=== PATIENT | male | born 1985 | race Caucasian/White ===

== ENCOUNTER 2024-09-05 15:51 | Inpatient (IN) | payer OTHER ==
[~2024-09-05] VITALS: Ht 182.9 cm; Wt 105.1 kg
[~2024-09-05 15:51] MED LIST: INSUASPI SC; INSULANPEN SC; LISI20 PO; LISI5 PO; METF500 PO
[2024-09-05 16:48] LABS: BASOPHILS ABSOLUTE AUTO 0.04 K/mm3 (0.00-0.23); BASOPHILS PERCENT AUTO 0 % (0-2); EOSINOPHILS ABSOLUTE AUTO 0.06 K/mm3 (0.00-0.68); EOSINOPHILS PERCENT AUTO 1 % (0-6); Hematocrit 35.8 % (37.0-53.0); Hemoglobin 12.5 g/dL (13.5-17.5); IMMATURE GRAN ABSOLUTE AUTO 0.04 K/mm3 (0.00-0.10); IMMATURE GRAN PERCENT AUTO 0 % (0-1); LYMPHOCYTES ABSOLUTE AUTO 1.68 K/mm3 (0.84-5.20); LYMPHOCYTES PERCENT AUTO 14 % (21-46); MONOCYTES ABSOLUTE AUTO 1.33 K/mm3 (0.16-1.47); MONOCYTES PERCENT AUTO 11 % (4-13); Mean Corpuscular HGB 30.7 pg (26.0-34.0); Mean Corpuscular HGB Conc 34.9 g/dL (31.5-36.5); Mean Corpuscular Volume 88 fL (80-100); Mean Platelet Volume 9.7 fL (9.1-12.4); NEUTROPHILS ABSOLUTE AUTO 9.15 K/mm3 (1.96-9.15); NEUTROPHILS PERCENT AUTO 74 % (41-73); Platelet Count 226 K/mm3 (150-400); RDW Coefficient Variation 12.1 % (11.7-14.2); RDW Standard Deviation 38.9 fL (35.1-46.3); Red Blood Cell Count 4.07 M/mm3 (4.30-5.90)
[2024-09-05] MEDS ORDERED: Ketorolac Tromethamine 15mg Vial IV ONE (16:55)
[2024-09-05 17:10] LABS: Albumin, Blood 2.9 g/dL (3.4-5.0); Albumin/Globulin Ratio 0.7 (0.8-1.8); Bilirubin, Total 0.3 mg/dL (0.1-1.0); Bun/Creatinine Ratio 19.6 (12.0-20.0); Calcium, Blood 8.5 mg/dL (8.5-10.1); Creatinine, Blood 1.12 mg/dL (0.60-1.20); Potassium, Blood 4.1 mmol/L (3.5-5.5); Total Protein, Blood 6.9 g/dL (6.4-8.2)
[2024-09-05] MEDS ORDERED: NS 1,000 ML IV SCH ×3 (18:20→19:30)
[2024-09-05] MEDS ORDERED: Ampicillin Sod/Sulbactam Sod 1.5 GM in NS 100 ML IV ONE (18:20)
[2024-09-05] MEDS ORDERED: Ondansetron HCl 2 MG / ML 2ML Vial IV PRN (19:30)
[2024-09-05] MEDS ORDERED: OxyCODONE 5 mg/Acetamin 325 mg TABLET PO PRN (19:30)
[2024-09-05] MEDS ORDERED: Labetalol HCL 5 MG/ML 4ML Injection (Single Dose) IV PRN (19:35)
[2024-09-05] MEDS ORDERED: CefTRIAXone Sodium 2,000 MG in NS 100 ML IV ONE (19:35)
[2024-09-05] MEDS ORDERED: Vancomycin HCL 2,000 MG in NS 500 ML IV ONE (19:45)
[2024-09-05] MEDS ORDERED: Vancomycin HCL 2,500 MG in NS 500 ML IV ONE (19:45)
[2024-09-05] MEDS ORDERED: AmLODIPine Besylate 5 MG Tab PO ONE (20:00)
[2024-09-05] MEDS ORDERED: METF500 PO (20:49)
[2024-09-05] MEDS ORDERED: Crestor40 MG PO (20:50)
[2024-09-05] MEDS ORDERED: GABA300 PO (20:53)
[2024-09-05 20:57] VITALS: BP 197/123
[2024-09-05] MEDS ORDERED: Insulin Glargine-Yfgn 100 Unit/mL 3 ML SYR SC SCH (21:00)
[2024-09-05] MEDS ORDERED: Lactobacil 2-S.Thermo-Bifido 1 1 Cap PO SCH (21:00)
[2024-09-05] MEDS ORDERED: Docusate Sodium 100 MG Cap PO SCH (21:00)
[2024-09-05] MEDS ORDERED: Insulin Human Lispro 100 Units/ML 3ML Syringe SC SCH (21:00)
[2024-09-06] VITALS (10 sets, daily range): BP systolic 166–200; BP diastolic 104–118
[2024-09-06 05:23] LABS: BASOPHILS ABSOLUTE AUTO 0.05 K/mm3 (0.00-0.23); BASOPHILS PERCENT AUTO 1 % (0-2); EOSINOPHILS ABSOLUTE AUTO 0.14 K/mm3 (0.00-0.68); EOSINOPHILS PERCENT AUTO 2 % (0-6); Hematocrit 31.1 % (37.0-53.0); Hemoglobin 10.9 g/dL (13.5-17.5); IMMATURE GRAN ABSOLUTE AUTO 0.02 K/mm3 (0.00-0.10); IMMATURE GRAN PERCENT AUTO 0 % (0-1); LYMPHOCYTES ABSOLUTE AUTO 2.65 K/mm3 (0.84-5.20); LYMPHOCYTES PERCENT AUTO 30 % (21-46); MONOCYTES ABSOLUTE AUTO 0.95 K/mm3 (0.16-1.47); MONOCYTES PERCENT AUTO 11 % (4-13); Mean Corpuscular HGB 31.2 pg (26.0-34.0); Mean Corpuscular Volume 89 fL (80-100); Mean Platelet Volume 9.7 fL (9.1-12.4); NEUTROPHILS ABSOLUTE AUTO 5.12 K/mm3 (1.96-9.15); NEUTROPHILS PERCENT AUTO 57 % (41-73); Platelet Count 202 K/mm3 (150-400); RDW Coefficient Variation 12.3 % (11.7-14.2); RDW Standard Deviation 39.8 fL (35.1-46.3); Red Blood Cell Count 3.49 M/mm3 (4.30-5.90); White Blood Cell Count 8.93 K/mm3 (4.00-11.30)
[2024-09-06 05:37] LABS: International Normalized Ratio 0.95; Prothrombin Time Results 10.2 Sec (9.7-11.5)
[2024-09-06 05:41] LABS: Albumin, Blood 2.3 g/dL (3.4-5.0); Albumin/Globulin Ratio 0.6 (0.8-1.8); Bilirubin, Total 0.3 mg/dL (0.1-1.0); Bun/Creatinine Ratio 18.2 (12.0-20.0); Creatinine, Blood 0.88 mg/dL (0.60-1.20); Globulin, Blood 3.6 g/dL (2.2-4.0); Potassium, Blood 3.2 mmol/L (3.5-5.5); Total Protein, Blood 5.9 g/dL (6.4-8.2)
--- NOTE | 2024-09-06 06:43 | NUR ---
SHIFT SUMMARY PT ADMITTED FOR ACUTE OSTEOMYLITIS. . PT IS RECEPTIVE TO CARE, ON ROOM AIR, WITH TELE. PT HAS HISTORY OF HYPERTENTION AND IS DM2. BED IN LOW POSITION, CALL LIGHT WITHIN REACH, RAILS TIMES 2.
[2024-09-06] MEDS ORDERED: Potassium Chloride 20 MEQ TabCR PO ONE (07:20)
[2024-09-06] MEDS ORDERED: Vancomycin HCL 1,500 MG in NS 250 ML IV SCH (09:00)
[2024-09-06] MEDS ORDERED: Enoxaparin 40 MG/0.4 ML SYR SC SCH (09:00)
[2024-09-06] MEDS ORDERED: CefTRIAXone Sodium 2,000 MG in NS 100 ML IV SCH (13:00)
--- NOTE | 2024-09-06 19:12 | NUR ---
SHIFT SUMMARY PT IS A/OX4, INDEPENDENT IN THE ROOM. PT REPORT NO PAIN TO RIGHT FOOT. CONTINUING IV ANTIBIOTICS. BLOOD PRESSURE ELEVATED, MEDICATED WITH PRN LABETALOL. TELE RUNNING SINUS TACH IN THE 110'S. PT SEEN BY PODIATRY THIS AFTERNOON. PODIATRY DRESSED WOUND. SEE WOUND CARE ORDERS. DR SMITH CONSULTED. FAMILY AT BEDSIDE THIS AFTERNOON.
[2024-09-06] MEDS ORDERED: Lisinopril 10 MG Tab PO SCH (20:35)
[2024-09-07] VITALS (12 sets, daily range): BP systolic 150–190; BP diastolic 98–117
[2024-09-07 05:39] LABS: Bun/Creatinine Ratio 9.2 (12.0-20.0); Calcium, Blood 8.4 mg/dL (8.5-10.1); Creatinine, Blood 0.87 mg/dL (0.60-1.20); Potassium, Blood 3.5 mmol/L (3.5-5.5)
--- NOTE | 2024-09-07 05:54 | NUR ---
SUMMARY: PT A/OX4, IS INDEPENDENT IN ROOM AND CALLS APPROPRIATELY TO SPECIFY NEEDS. PERSISTENT HYPERTENSION WAS OBSERVED W/BP INITIALLY 199/118. PRN IV LABETOLOL RECEIVED FOR ONLY SLIGHT IMPROVEMENT. MISTY (RESEARCH ANTHROPOLOGIST) ALERTED TO HOME MED (LISINOPRIL 10MG PO AT BEDTIME) NOT CURRENTLY RX'D. MED WAS RESTARTED W/1ST DOSE PROVIDED. HE'S REQUIRED AN ADDITIONAL DOSE OF PRN IV LABETOLOL SINCE BUT BP IS NOW DOWN TO 150/105. IVF WERE DC'D AND HR IS TRENDING DOWN WELL, NOW S.TACH AT LOW 100'S BPM. CBG WAS 190 AT HS SO PT ONLY TOOK 50 UNITS GLARGINE AND PROVIDER WAS MADE AWARE. BANDAGE PLACED BY TO PT'S R.4TH TOE REMAINS C/D/I. REDNESS AND SWELLING PERSISTS AND BLE'S ARE ELEVATED IN BED. IV ABX RECEIVED PER EMAR AND PT DENIES PAIN/COMPLAINTS. NO ACUTE CHANGES. WILL REPORT TO DAY RN.
[2024-09-07 08:27] LABS: Vancomycin, Trough 14.2 ug/mL (5.0-10.0)
[2024-09-07] MEDS ORDERED: Vancomycin HCL 1,750 MG in NS 500 ML IV SCH ×2 (09:00→22:00)
[2024-09-07] MEDS ORDERED: Lisinopril 20 MG Tab PO SCH (14:00)
--- NOTE | 2024-09-07 18:23 | NUR ---
SUMMARY- AAOX4. PT DENIED ANY PAIN. X1 ASSIST. PT ON RA. GOOD APPETITE. NO ACUTE EVENTS THIS SHIFT.
--- NOTE | 2024-09-07 19:31 | NUR ---
Care assumed now for this patient. Report received from Yasemin TOLENTINO. Patient is able to participate in bedside report. No complaints now. Continue Care.
[2024-09-08 04:56] VITALS: BP 152/108
--- NOTE | 2024-09-08 06:15 | NUR ---
38 Y/O PATIENT WITH OSTEOMYLITIS OF THE 4TH RIGHT TOE. SOME REDNESS NOTED ON THE RIGHT UPPER FOOT. PATIENT ASKED FOR PAIN MED LAST NIGHT COMPLAINING MORE OF HIS BACK HURTING AND NOT HIS FOOT. ALSO NEW ORDERS RECEIVED FOR HIS GLARGINE INSULIN PATIENT STATES HE TAKES 50 UNITS IN THE MORNING AND 50 UNITS AT NIGHT. PROVIDER CALLED LAST NIGHT AND ORDER WAS CHANGED. WILL MONITOR BLOOD SUGARS TODAY. HTN SYSTOLIC BLOOD PRESSURE LAST NIGHT OVER 180 AND LABETOLOL [address] TELE [address] NO NEW ISSUES CONTINUE CARE
[2024-09-08 07:30] VITALS: BP 169/108
[2024-09-08] MEDS ORDERED: Insulin Glargine-Yfgn 100 Unit/mL 3 ML SYR SC SCH (09:00)
--- NOTE | 2024-09-08 09:05 | NUR ---
0900- THIS RN RECEIVED VERBAL FROM MD GOLDBERG TO GIVE 50 UNITS LANTUS THIS AM. AWARE OF BG=79. ALSO GAVE VERBAL TO ORDER 25MG METOPROLOL TARTRATE BID.
[2024-09-08] MEDS ORDERED: Metoprolol Tartrate 25 MG Tab PO ONE (09:10)
[2024-09-08 11:32] VITALS: BP 172/111
[2024-09-08] MEDS ORDERED: INSDET100 SC (11:43)
[2024-09-08] MEDS ORDERED: METO25 PO (13:54)
[2024-09-08] MEDS ORDERED: VISBIOME 112.51 EACH PO (13:55)
[2024-09-08] MEDS ORDERED: AMOCLA875 PO (13:55)
[2024-09-08] MEDS ORDERED: DOXY100 PO (13:56)
--- NOTE | 2024-09-08 15:05 | NUR ---
1419- PT LEFT IN STABLE CONDITION WITH ALL BELONGINGS WITH FOR RIDE. PT GIVEN WOUND CARE SUPPLIES FOR TOE.
[2024-09-08] MEDS ORDERED: Metoprolol Tartrate 25 MG Tab PO SCH (21:00)
== END 2024-09-08 14:19 | disposition home or self-care (01) | DRG 872 ==
LOC: ER 15:51 → ERHOLD 19:28 → MEDS 19:28
PROVIDERS: Internal Medicine; Nurse Practitioner Acute Care; Student in an Organized Health Care Education/Training Program; ADMIT Internal Medicine
DX: A41.9 Sepsis, unspecified organism (principal); M86.8X7 Other osteomyelitis, ankle and foot; E11.621 Type 2 diabetes mellitus with foot ulcer; L97.519 Non-pressure chronic ulcer of other part of right foot with unspecified severity; E11.65 Type 2 diabetes mellitus with hyperglycemia; E11.69 Type 2 diabetes mellitus with other specified complication; E87.6 Hypokalemia; I10 Essential (primary) hypertension; E78.5 Hyperlipidemia, unspecified; E11.51 Type 2 diabetes mellitus with diabetic peripheral angiopathy without gangrene; Z79.899 Other long term (current) drug therapy; Z79.4 Long term (current) use of insulin; Z79.811 Long term (current) use of aromatase inhibitors; Z79.891 Long term (current) use of opiate analgesic; Z79.2 Long term (current) use of antibiotics
CPT/HCPCS: 36415; 71045; 73620; 73718; 80048; 80053; 80202; 82947; 83605; 83735; 83880; 84484; 85025; 85610; 85651; 86140; 93005; 93010; 93306; 93926; 96365; 96375; 99285-25; A9270; J0295; J0696; J1650; J1815; J1885; J3370; J7030; J7040; J7050

== ENCOUNTER 2024-09-11 11:00 | Day surgery (SDC) | payer OTHER ==
[2024-09-11] VITALS (7 sets, daily range): BP systolic 155–168; BP diastolic 96–115
[~2024-09-11] VITALS: Ht 185.4 cm; Wt 103.6 kg
[~2024-09-11 11:00] MED LIST changes: +AMOCLA875 PO; +Crestor40 MG PO; +DOXY100 PO; +GABA300 PO; +INSDET100 SC; +METO25 PO; +VISBIOME 112.51 EACH PO
[2024-09-11] MEDS ORDERED: NS 1,000 ML IV ONE ×2 (12:49→13:58)
[2024-09-11] MEDS ORDERED: NS 250 ML IV ONE (12:49)
[2024-09-11] MEDS ORDERED: Midazolam HCl 1MG / ML 2ML Vial ONE (13:57)
[2024-09-11] MEDS ORDERED: FentaNYL Citrate 50 MCG/ML 2 ML Injection ONE (13:58)
[2024-09-11] MEDS ORDERED: HydrALAZINE HCl 20 MG / ML 1ML Vial ONE (14:21)
--- NOTE | 2024-09-11 15:07 | NUR ---
ARRIVES FROM 5TH GRADE TEACHER, LEFT GROIN ANGIOSEAL IN PLACE FOR LEFT FEMORAL ACCESS, REPORT RECEIVED, VSS, AT BEDSIDE, D/C PENDING PROTOCOL. CALL LIGHT IN REACH.
--- NOTE | 2024-09-11 16:41 | NUR ---
ARRIVED POSTOP EARLIER, SITE INTACT, MINIMAL ON HEPARIN, NO ACUTE ISSUES, GOOD PULSES DISTAL/PROXIMAL, PALPABLE BILATERALLY WITH FEINT TIBIAL RIGHT BUTH OTHERWISE PRESENT, PATENT. VSS, ARRIVED AT BEDSIDE. LATER, SAT HOB UP AND GIVEN FOOD, THEN AMBULATED PATIENT, SITE REMAINED UNCHANGED. PATIENT/ VERBALIZED UNDERSTANDING TO PLAN FOR D/C HOME, CALL/RETURN, ISSUES AND WHEN TO CALL , GIVEN MED LIST AND FEM SITE CARE INSTRUCTIONS AND AWARE WILL CALL FOR F/U APPT. NO CONCERNS OR QUESTIONS, PATIENT DRESSED, IV REMOVED, BELONGINGS GATHERED, TAKEN BY W/C TO PRIVATE VEHICLE, LEFT AT 1640 FROM UNIT.
== END 2024-09-11 16:40 | disposition home or self-care (01) ==
LOC: MHTC 11:00
DX: E11.51 Type 2 diabetes mellitus with diabetic peripheral angiopathy without gangrene (principal); I70.221 Atherosclerosis of native arteries of extremities with rest pain, right leg; E11.69 Type 2 diabetes mellitus with other specified complication; E78.00 Pure hypercholesterolemia, unspecified; I10 Essential (primary) hypertension; Z79.4 Long term (current) use of insulin; Z79.84 Long term (current) use of oral hypoglycemic drugs; Z79.899 Other long term (current) drug therapy
CPT/HCPCS: 37228; 75625; 75716; 75774; 76937; 99152; 99153; C1725; C1760; C1769; C1894; J0360; J2250; J3010; J7030; J7050; Q9967

== ENCOUNTER 2025-04-20 08:11 | Day surgery (SDC) | payer OTHER ==
[~2025-04-20] VITALS: Ht 185.4 cm; Wt 111.7 kg
[2025-04-20] MEDS ORDERED: Tranexamic Acid 100 ML IV ONE (09:09)
[2025-04-20] MEDS ORDERED: CeFAZolin Sodium 2,000 MG VIAL ONE (09:10)
[2025-04-20] MEDS ORDERED: MOUNJARO2.5 MG/0.5 (09:16)
[2025-04-20] MEDS ORDERED: FentaNYL Citrate 50 MCG/ML 2 ML Injection ONE (09:47)
[2025-04-20] MEDS ORDERED: Midazolam HCl 1MG / ML 2ML Vial ONE (09:47)
[2025-04-20] MEDS ORDERED: Rocuronium Bromide 10 MG/ML 5ML Injection IV ONE (09:49)
[2025-04-20] MEDS ORDERED: Bupivacaine 0.5% HCl 5 MG/ML 30MLVIAL ONE (10:22)
--- NOTE | 2025-04-20 10:49 | NUR ---
04/20/25 Cyn Agustin PT HAD A SKIN TEAR/ABRASION ON LEFT DUPONT APPROX. 1/2 INCH IN LENGTH 1 INCH WIDTH. IS AWARE AND LOOKED AT THE TEAR. TOLD PT AND PT TO CALL HIS OFFICE IF THE TEAR/ABRASION STARTS TO GET RED STREAKS THAT RUNS UP HIS LEG. IS OKAY TO PROCEED WITH LEFT SHOULDER SURGERY.
[2025-04-20] MEDS ORDERED: Phenylephrine HCl 100 MCG/ML-NS 10MLSYR (1MG/10ML) ONE (11:01)
--- NOTE | 2025-04-20 11:16 | NUR ---
04/20/25 1116 Shabnam Butts FIRST 3 BAGS OF 3000ML LR WITH 1MG OF EPI FOR HEMOSTASIS USED DURING ARTHROSCOPY PER SURGEON.
[2025-04-20] MEDS ORDERED: ePHEDrine Sulfate 50 MG/ML 1ML Injection ONE (11:42)
[2025-04-20] MEDS ORDERED: Ondansetron HCl 2 MG / ML 2ML Vial ONE (13:13)
[2025-04-20 13:22] VITALS: BP 129/83
== END 2025-04-20 13:17 | disposition home or self-care (01) ==
LOC: ORSCSDS 08:11
PROVIDERS: Orthopaedic Surgery Sports Medicine
PROC: 0RBK4ZZ Excision of Left Shoulder Joint, Percutaneous Endoscopic Approach (ICD-10-PCS; principal; 2025-04-20 10:15)
DX: M75.42 Impingement syndrome of left shoulder (principal); M67.912 Unspecified disorder of synovium and tendon, left shoulder; M75.52 Bursitis of left shoulder; I10 Essential (primary) hypertension; E11.9 Type 2 diabetes mellitus without complications; E66.9 Obesity, unspecified; Z68.32 Body mass index [BMI] 32.0-32.9, adult; Z79.84 Long term (current) use of oral hypoglycemic drugs; Z79.899 Other long term (current) drug therapy; I73.9 Peripheral vascular disease, unspecified; Z79.4 Long term (current) use of insulin
CPT/HCPCS: 82947; J0166; J0690; J2250; J2371; J2405; J2704; J3010; J7120